=== PATIENT | male | born 2000 | race African-American/Black ===

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

== ENCOUNTER 2022-08-01 19:42 | Emergency (ER) | payer OTHER ==
[2022-08-01 19:53] VITALS: BP 149/59; PULSE 54; RESP 20; TEMP 98; BMI 27.3
[2022-08-01] MEDS ORDERED: IBUPROFEN 400 MG TABLET (FP) PO ONE ×2 (21:20→21:37)
== END 2022-08-01 22:25 | disposition home or self-care (01) ==
LOC: JERFT 19:42
DX: S29.011A Strain of muscle and tendon of front wall of thorax, initial encounter (principal); X50.0XXA Overexertion from strenuous movement or load, initial encounter
CPT/HCPCS: 99283-25